=== PATIENT | male | born 1995 | race Caucasian/White ===

== ENCOUNTER → 2018-02-26 | Day surgery (SDC) | payer OTHER ==
[2018-02-23 15:25] VITALS: BMI 23.0
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
[~2018-02-26] VITALS: Ht 175.3 cm; Wt 70.5 kg
[~2018-02-26] MED LIST: ASPI81TA28 PO; ATROPINE SULFATE 0.1 MG/ML 5ML SYR IV PRN; BACITRACIN 50000 UNIT VIAL ONE; BUPIVACAINE 0.25% 30 ML VIAL ONE; BUPIVACAINE/EPINEPHRINE 0.5% MPF 1:200,000 30 ML VIAL ONE; CEFAZOLIN SOD 2000MG/15 ML IV PUSH ONE; DEXAMETHASONE SOD INJ 4 MG/ML VIAL ONE; EpHEDrine SULFATE INJ 50 MG/ML AMP IV PRN; EpINEphrine INJ 1MG/ML AMP 1 MG/ML AMP ONE; FENTANYL CITRATE INJ 50 MCG/1 ML 2 ML VIAL IV PRN; FENTANYL CITRATE INJ 50 MCG/1 ML 2 ML VIAL ONE; LACTATED RINGER'S 1000ML 1,000 ML IV SCH; LIDOCAINE HCL 2% 2 ML VIAL (20MG/ML) ONE; MIDAZOLAM HCL 1 MG/ML 2ML VIAL ONE; NURSING VERBAL MED ORDER ONE; ONDANSETRON INJ 2 MG/ML 2 ML VIAL IV PRN; ONDANSETRON INJ 2 MG/ML 2 ML VIAL ONE; OXYC-57 PO; OXYCODONE/ACETAMINOPHEN 5-325 TAB PO PRN; PROM25TA9 PO; PROMETHAZINE HCL INJ 6.25 MG in SODIUM CHLORIDE 0.9% 50ML 50 ML IV PRN; PROPOFOL IV EMULSION 10 MG/ML 20 ML VIAL ONE
[2018-02-26 11:17] VITALS: BP 146/60; PULSE 69; TEMP 36.7; O2SAT 98; Ht 175.3 cm; Wt 70.5 kg
--- NOTE | 2018-02-26 11:58 | Discharge Instructions ---
Discharge Instructions Date of Service February 26, 2018. Admission Reason for Admission: Fracture Of Unspecified Part Of Left Clavicle Discharge Discharge Diagnosis / Problem: left clavicle fracture Discharge Goals Goal(s): Decrease discomfort, Improve function Activity Recommendations Activity Limitations: per Instructions/Follow-up section Shower/Bathe: keep incision dry (Do not shower until after your first follow up.) Weightbearing Status: Left non-weightbearing . Instructions / Follow-Up Instructions / Follow-Up [facility] DISCHARGE INSTRUCTIONS: OPEN REDUCTION INTERNAL FIXATION CLAVICLE FRACTURE SELF CARE INSTRUCTIONS A. You are permitted to loosen your sling/immobilizer to move your elbow, wrist , and hand to prevent stiffness. You should use your well arm (good arm) to assist the operated extremity when trying to raise the arm away from the body, hygiene purposes. Do NOT actively try to use/engage your shoulder muscles in operative arm at this time. You should NOT do overhead activity, lifting, or attempt to reach behind your back. B. At 72 hours post-operatively, you may change your dressing. (Leave white steri-strips intact if present). Use gauze bandages and change daily. Do not shower at this time or get the incision area wet. (No baths, swimming pools, hot tubs) C. Do NOT apply soap or any ointment/lotions directly over incision. D. You may use ice as needed to operative shoulder SPECIAL CARE INSTRUCTIONS: VERY IMPORTANT TO READ AND REVIEW A. There are a few signs you need to watch for after you are home. Call [facility] at [phone] if you experience any of the following: a. Increased severe shoulder pain. Some pain is expected especially when you exercise b. Increased swelling in your shoulder or arm; pain or swelling in either upper extremity. (Note: swelling and stiffness is normal and expected for several weeks post op, depending on type of shoulder surgery you had). c. Any fluid or drainage from the incision; redness of the incision. d. Shortness of breath or chest pain. B. Please call [facility] at [phone] if you have any questions or concerns about your operation or recovery. C. Call your physician if: a. Temperature is greater than 101 degrees (F). b. Pain is not relieved by prescribed pain medications. c. Increase drainage or redness from incision. d. Unanswered questions or concerns. D. Pain Medication: a. You will be prescribed pain medication upon discharge that should last till your first post-operative appointment. b. If you experience nausea and/or skin rash, discontinue this medication and contact our office for an alternative medication. c. Caution- narcotic pain medication can cause constipation. FOLLOW UP VISIT: Please call [facility] at [phone] to schedule a follow up appointment 10-14 days from your surgery date. Current Hospital Diet Patient's current hospital diet: Discharge Diet Recommended Diet: Regular Diet Pending Studies Studies pending at discharge: no Medical Emergencies . Who to Call and When: Medical Emergencies: If at any time you feel your situation is an emergency, please call 911 immediately. . Non-Emergent Contact Non-Emergency issues call your: Surgeon Call Non-Emergent contact if: temperature is above 101, your pain is not controlled, your pain is worsening, wound has increased drainage, wound has increased redness . "Provider Documentation" section prepared by Hamzah Kenney. .
--- NOTE | 2018-02-26 12:29 | History & Physical Bridge Note ---
H&P Re-Evaluation Bridge Note: I have examined the patient, reviewed the History & Physical and in the interval since the performance of the History & Physical I have noted the following changes of clinical significance: No changes noted
--- NOTE | 2018-02-26 14:28 | [facility] Post Operative Brief Note ---
Immediate Operative Summary Operative Date February 26, 2018. Pre-Operative Diagnosis Left displaced distal 1/3 Clavicle Fracture Post-Operative Diagnosis Left displaced distal 1/3 Clavicle Fracture Procedure(s) Performed Left Clavicle Open Reduction Internal Fixation Surgeon Dr. Yakov Espitia [employer] Surgeon(s) Hamzah Kenney PA-C Estimated Blood Loss 20 ML Findings Consistent with Post-Op Diagnosis Specimens none per surgeon Drains None Anesthesia Type General Regional Complication(s) none Disposition Accompanied Pt To Recover: no Disposition: Recovery Room / PACU
--- NOTE | 2018-02-26 15:24 | DIAGNOSTIC IMAGING REPORT ---
L CLAVICLE CLINICAL HISTORY: ORIF LT CLAVICLE COMPARISON: None Fluoroscopy time: 15 seconds. FINDINGS: 2 fluoroscopic images demonstrate plate and screw fixation of a left clavicular fracture. Fracture is difficult to visualize on this exam. Alignment appears near anatomic. There are no unexpected radiopaque foreign bodies. IMPRESSION: Fluoroscopic images demonstrating left clavicular internal fixation with plate and screws. Electronically signed by: Frandy Desir M.D. 02/26/2018 3:23 PM Dictated Date/Time: 02/26/2018 3:22 PM
[2018-02-26 15:33] VITALS: BP 139/66; PULSE 77; TEMP 36.3; O2SAT 97
[2018-02-26 16:03] VITALS: BP 123/76; PULSE 69; TEMP 36.5; O2SAT 99
--- NOTE | 2018-02-26 16:23 | Anesthesiology Progress Note ---
Anesthesia Post Op Note Date & Time February 26, 2018 at 16:23 Vital Signs Pain Intensity: 0 Vital Signs Past 12 Hours Date Time Temp Pulse Resp B/P (MAP) Pulse Ox O2 Delivery O2 Flow Rate FiO2 02/26/18 15:30 68 16 131/73 97 Room Air 02/26/18 15:20 36.3 67 16 128/83 97 Room Air 02/26/18 15:10 76 16 127/71 98 Room Air 02/26/18 15:00 74 16 138/69 98 Nasal Cannula 02/26/18 14:50 36.2 78 18 137/96 98 Oxymask 3 02/26/18 11:17 36.7 69 18 146/60 (88) 98 Room Air Notes Mental Status: alert / awake / arousable, participated in evaluation Pt Amnestic to Procedure: Yes Nausea / Vomiting: adequately controlled Pain: adequately controlled Airway Patency, RR, SpO2: stable & adequate BP & HR: stable & adequate Hydration State: stable & adequate Anesthetic Complications: no major complications apparent Block working well in pacu
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
== END | disposition home or self-care (01) ==
LOC: C.ACU 10:55
PROVIDERS: ATTEND Orthopaedic Surgery Sports Medicine
DX: S42.032A Displaced fracture of lateral end of left clavicle, initial encounter for closed fracture (principal); X58.XXXA Exposure to other specified factors, initial encounter; V86.56XA Driver of dirt bike or motor/cross bike injured in nontraffic accident, initial encounter